=== PATIENT | female | born 1970 | race Caucasian/White ===

== ENCOUNTER 2022-09-16 04:26 | Inpatient (IN) | payer OTHER ==
[~2022-09-16] VITALS: Ht 157.5 cm; Wt 67.1 kg
[~2022-09-16 04:26] MED LIST: ALPR0.5T8 PO
--- NOTE | 2022-09-16 04:36 | NUR ---
Dr. Oliva evaluated patient at bedside. MSE in progress.
[2022-09-16] MEDS ORDERED: ONDANSETRON 4 MG/2 ML VIAL ONE ×3 (04:44→06:51)
[2022-09-16] MEDS ORDERED: LORAZEPAM 2 MG/1 ML VIAL IV ONE (04:45)
[2022-09-16] MEDS ORDERED: IV NORMAL SALINE 1000 ML BAG IV ONE (04:45)
[2022-09-16] MEDS ORDERED: ONDANSETRON 4 MG/2 ML VIAL IV ONE ×3 (04:45→07:00)
[2022-09-16] MEDS ORDERED: LORAZEPAM 2 MG/1 ML VIAL ONE (04:45)
[2022-09-16 04:53] LABS: HEMATOCRIT 41.1 % (31.2-41.9); MEAN CORPUSCULAR HEMOGLOBIN 30.5 uug (24.7-32.8); MEAN CORPUSCULAR VOLUME 90.4 fL (75.5-95.3); PLATELET COUNT (AUTO) 391 K/uL (179-408)
--- NOTE | 2022-09-16 04:53 | NUR ---
Xray at bedside.
[2022-09-16] MEDS ORDERED: DIPHENOXYLATE HCL/ATROP SULF TABLET ONE (05:23)
[2022-09-16] MEDS ORDERED: DICYCLOMINE HCL LIQ 10 MG/5 ML UDC ONE (05:23)
[2022-09-16] MEDS ORDERED: DICYCLOMINE HCL LIQ 10 MG/5 ML UDC PO ONE (05:30)
[2022-09-16] MEDS ORDERED: DIPHENOXYLATE HCL/ATROP SULF TABLET PO ONE (05:30)
--- NOTE | 2022-09-16 05:31 | NUR ---
Patient became nauseous, 1x emesis. Dr. Oliva notified.
[2022-09-16 05:55] LABS: CREATININE 0.8 mg/dL (0.6-1.3); POTASSIUM 3.4 mmol/L (3.5-5.1)
[2022-09-16 06:00] LABS: BILIRUBIN,DIRECT 0.1 mg/dL (0.0-0.2); BILIRUBIN,TOTAL 0.5 mg/dL (0.2-1.0); TOTAL PROTEIN, SERUM 7.8 g/dL (6.4-8.2)
--- NOTE | 2022-09-16 06:05 | NUR ---
Patient walked to the bathroom independently. Had a large void.
--- NOTE | 2022-09-16 06:40 | NUR ---
Called [facility] for panel call. 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
[2022-09-16] MEDS ORDERED: HYDR-3980 PO (06:41)
--- NOTE | 2022-09-16 07:00 | NUR ---
Report given to Slick ROBBINS
[2022-09-16] MEDS ORDERED: MAGNESIUM HYDROXIDE 30 ML LIQUID UDC PO PRN (07:30)
[2022-09-16] MEDS ORDERED: OLANZAPINE 10 MG VIAL IM ONE ×2 (07:30→07:35)
[2022-09-16] MEDS ORDERED: LOPERAMIDE HCL 2 MG CAPSULE PO ONE (07:30)
[2022-09-16] MEDS ORDERED: REMEDY ESSENTIAL ZINC PASTE 113 GM TP PRN (07:30)
[2022-09-16] MEDS ORDERED: LOPERAMIDE HCL 2 MG CAPSULE ONE (07:41)
[2022-09-16] MEDS: IV D5 1/2 NS 1000 ML 1,000 ML IV PRN (09:43)
[2022-09-16] MEDS: PANTOPRAZOLE SODIUM 40 MG VIAL IV SCH (09:53)
[2022-09-16 10:26] VITALS: BP 148/73
[2022-09-16] MEDS: POTASSIUM CHLORIDE 50 ML IV SCH ×2 (11:11→12:16)
[2022-09-16] MEDS ORDERED: METOCLOPRAMIDE HCL 10 MG/2 ML VIAL IV PRN (12:15)
[2022-09-16 14:09] LABS: *BILIRUBIN,URIN NEGATIVE (NEGATIVE); *CLARITY,URINE CLEAR (CLEAR); *COLOR,URINE YELLOW (YELLOW); *KETONES,URINE TRACE (NEGATIVE); *UROBILINOGEN,URINE 0.2 E.U./dl (NORMAL); LEUKOCYTE ESTERASE ,URINE NEGATIVE (NEGATIVE); NITRITE, URINE NEGATIVE (NEGATIVE); PH,URINE 7.5 (5.0-8.0); UGLUCOSE NEGATIVE (NEGATIVE)
[2022-09-16 14:12] LABS: *BLOOD, URINE TRACE (NEGATIVE)
[2022-09-16] MEDS: CEFTRIAXONE 1 G in IV DEXTROSE 5% 50 ML IV SCH (14:14)
[2022-09-16] MEDS ORDERED: IBUP-1957 PO (14:53)
--- NOTE | 2022-09-16 15:29 | NUR ---
0830-Rec'd report from Slick Lawrence RN as follows: Patient had been admitted to E/R floor early this AM ([id number]) with SS N/V & diarrhea, treated/medicated at ER with: zofran 4mg, Imodium 2mg. Per Slick, patient has been vomiting and having diarrhea since admitting. Patient was placed in room 310, patient is somewhat sedated/sleepy appearance, able to answer questions asked, states to be tired and nauseous. Ice chips provided, no actual vomiting, patient noted to gag every on and off, but not expelling anything at the moment. No respiratory distress noted, patient on R/A and vesta. well. VSS and on [employer] system. Patient denies GI pain/pain in general and states to be nauseated and possible is food poisoning. 0840-Apryl Vizcarra making rounds and assessed patient, patient with orders for IVF hydration of D5 1/2 ns at 75cc/hr., IV to left AC infiltrated; IV reinserted to left FA, procedure explained prior insertion. Patient tolerated well w/o c/o pain, IVF/Medication administered as ordered. 1200-Assisted patient to the restroom and voided well, UA sample collected and taken to the lab. Patient on clear liquid diet, no appetite, patient continues with nauseous symptoms and vomiting bile like fluids. Medicated patient PRN with Reglan as ordered by MD with some relief to her nausea. 1300-Patient able to consumed a small amount of Jello, vesta. well and continue taking ice chips; at bedside. Allergies reverified by pharmacist. 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
[2022-09-16] MEDS: ACETAMINOPHEN 325 MG TABLET PO PRN ×2 (16:05→21:30)
[2022-09-16 16:28] VITALS: BP 150/79
--- NOTE | 2022-09-16 17:42 | NUR ---
US & UA results, temp of 100.6 relayed to Apryl. Informed Apryl patient has not vomit post Reglan medication PRN was given earlier. And no episodes of diarrhea at till this time either. Patient continues on IVF hydration as ordered. Ice chips provided as requested through out the shift and tolerated well.
[2022-09-16 20:00] VITALS: BP 144/91
[2022-09-16] MEDS: ONDANSETRON 4 MG/2 ML VIAL IV PRN (21:21)
--- NOTE | 2022-09-16 22:30 | NUR ---
AOx4. and children at bedside. Pt is ambulatory. On room air. IV site L FA 20g intact and patent. Pt complaining of nausea. Zofran given as ordered. Relieved after an hour. No emesis or diarrhea noted. All needs attended. Will continue to monitor.
[2022-09-17 00:08] LABS: BACTERIA,URINE NONE SEEN /HPF (NONE SEEN); RBC,URINE 0-3 /HPF (0-3); SQUAMOUS EPITHELIAL CELL,UR FEW /HPF (NONE SEEN); WBC,URINE 0-3 /HPF (0-3)
[2022-09-17] MEDS: IV D5 1/2 NS 1000 ML 1,000 ML IV PRN (02:50)
[2022-09-17 04:00] VITALS: BP 145/85
--- NOTE | 2022-09-17 05:26 | NUR ---
Slept intermittently. No complaints of nausea or diarrhea as of this time. All needs attended. Call light within reach. Left bed in lowest position. Will endorse to day shift nurse.
[2022-09-17] MEDS: ACETAMINOPHEN 325 MG TABLET PO PRN (06:29)
--- NOTE | 2022-09-17 06:45 | NUR ---
Pt complaining of shoulder pain. Administered Tylenol as ordered. Per pt, she takes [place] at home. Waiting for meds to be reconciled. Endorsed to day shift nurse.
[2022-09-17 06:52] LABS: HEMATOCRIT 39.7 % (31.2-41.9); MEAN CORPUSCULAR HEMOGLOBIN 30.4 uug (24.7-32.8); MEAN CORPUSCULAR VOLUME 91.8 fL (75.5-95.3); PLATELET COUNT (AUTO) 332 K/uL (179-408)
--- NOTE | 2022-09-17 07:10 | NUR ---
Pt had loose bowel movement x1. Stool collected and sent to lab.
--- NOTE | 2022-09-17 07:20 | NUR ---
IV site on left forearm infiltrated. IV line removed. Reinserted IV at right wrist 20g, intact and patent. Elevated left arm and warm compress provided. Endorsed to day shift nurse.
[2022-09-17 07:33] LABS: THYROID STIMULATING HORMONE 0.191 mIU/mL (0.358-3.740)
[2022-09-17 07:50] LABS: CREATININE 0.6 mg/dL (0.6-1.3); MAGNESIUM 2.2 mg/dL (1.8-2.4); PHOSPHOROUS 3.1 mg/dL (2.5-4.9); POTASSIUM 3.6 mmol/L (3.5-5.1)
[2022-09-17] MEDS: PANTOPRAZOLE SODIUM 40 MG VIAL IV SCH (09:52)
[2022-09-17] MEDS ORDERED: CALCIUM CARBONATE 500 MG TAB.CHEW PO SCH (10:00)
[2022-09-17] MEDS: ONDANSETRON 4 MG/2 ML VIAL IV PRN (10:14)
--- NOTE | 2022-09-17 10:23 | NUR ---
Patient is alert and oriented x4, made eye contact and able to verbalize her needs. She is comfortable currently. Pain denied when asked. She is calm and relaxed.Vomited today and Zofran given. Patient also complain of heartburn and Dr. Bartlett gave orders for Calcium Carbonate. Sn, will continue to monitor on current plan of care.
[2022-09-17 11:37] VITALS: BP 165/79
[2022-09-17] MEDS ORDERED: ONDA4TAB5 PO (11:43)
[2022-09-17] MEDS: CEFTRIAXONE 1 G in IV DEXTROSE 5% 50 ML IV SCH (14:26)
[2022-09-17 15:49] VITALS: BP 121/71
--- NOTE | 2022-09-17 16:28 | NUR ---
patient went home with at 1642. Patient stable, in good condition.
== END 2022-09-17 15:40 | disposition home or self-care (01) | DRG 392 ==
LOC: ER 04:28 → MEDSURG3 08:27
PROVIDERS: ADMIT Registered Nurse; ATTEND Internal Medicine
DX: A08.4 Viral intestinal infection, unspecified (principal); F11.20 Opioid dependence, uncomplicated; F41.1 Generalized anxiety disorder; G89.29 Other chronic pain; M25.511 Pain in right shoulder; Z88.0 Allergy status to penicillin; Z88.8 Allergy status to other drugs, medicaments and biological substances; R74.01 Elevation of levels of liver transaminase levels; E05.90 Thyrotoxicosis, unspecified without thyrotoxic crisis or storm; Z79.899 Other long term (current) drug therapy
CPT/HCPCS: 36415; 71045; 76700; 83690; 83735; 84100; 84443; 85025; 93005; A4663; C9113; G0378; J0696; J2060; J2358; J2405; J2765; J3480; J7040